=== PATIENT | female | born 1945 | race Caucasian/White ===

== ENCOUNTER 2017-12-13 06:48 | Inpatient (IN) | payer MEDICARE, OTHER ==
[2017-12-01 09:30] LABS: URINE BILIRUBIN NEGATIVE (Negative); URINE BLOOD NEGATIVE (Negative); URINE CLARITY CLEAR; URINE COLOR YELLOW; URINE GLUCOSE-RANDOM NEGATIVE (Negative); URINE KETONES NEGATIVE (Negative); URINE LEUKOCYTES-REFLEX NEGATIVE (Negative); URINE NITRITE-REFLEX NEGATIVE (Negative); URINE PROTEIN NEGATIVE (Negative); URINE SPECIFIC GRAVITY <= 1.005 (1.005-1.030); URINE UROBILINOGEN 0.2 E.U./dl (0.2-1.0)
[2017-12-01 09:39] LABS: HEMATOCRIT 36.9 % (37.0-47.0); HEMOGLOBIN 12.3 gm/dL (12.0-15.0); MCH 32.5 pg (26.0-34.0); MCHC 33.4 g/dL (28.0-37.0); MCV 97.3 fL (80.0-100.0); MPV 8.2 fl. (7.2-11.1); RBC 3.79 mil/uL (4.20-5.00); RDW-CV 13.1 % (10.5-14.5); WBC 3.1 thou/uL (4.0-11.0)
[2017-12-01 09:47] LABS: INR 1.1; PROTIME 10.5 Seconds (9.20-11.50)
[2017-12-01 09:51] LABS: ALBUMIN 3.3 g/dL (3.4-5.0); CALCIUM 8.7 mg/dL (8.5-10.1); CREATININE 0.9 mg/dL (0.6-1.3); POTASSIUM 3.9 mmol/L (3.5-5.1); TOTAL BILIRUBIN 0.4 mg/dL (<0.1-1.0); TOTAL PROTEIN 7.2 g/dL (6.4-8.2)
--- NOTE | 2017-12-01 15:48 | EKG ---
[place] [address] ELECTROCARDIOGRAM REPORT Name: SUBHA RODRIGUEZ Krystle Room: PRE IN [facility]#: [id number] Admission: Attend Phys: Shailesh Mars Discharge: Date of : 47 Report #: [id number] THIS REPORT FOR: //name// [facility] Test Date: 2017-12-01 Test Time: 09:04:56 Pat Name: SUBHA RODRIGUEZ Department: Room: Gender: F Senior Credit Analyst: : 1945 Requested By: Chris Gomez Order Number: [id number] Reading MD: Be Taveras Measurements Intervals [place] Rate: 65 P: 54 MO: 147 QRS: 53 QRSD: 95 T: 61 QT: 387 QTc: 403 Interpretive Statements Sinus rhythm Baseline wander in lead(s) V1,V2 No previous ECG available for comparison Electronically Signed On 12-01-2017 15:48:24 FOREIGN EXCHANGE CLERK by Be Taveras [email or web address] <ELECTRONICALLY SIGNED> By: Be Taveras MD, [facility] 12/01/17 1548 0904 0904 Be Taveras MD, FACC /EPI
[~2017-12-13] VITALS: Ht 157.5 cm; Wt 65.8 kg
[~2017-12-13 06:48] MED LIST: ASPIR 8181 MG PO; CEFUROXIME250 MG PO; PROBIOTIC1 EAC1 PO; PROMETHAZINE/C118 ML PO; SYNTHROID50 MCG PO
[2017-12-13 08:35] VITALS: BP 130/73
[2017-12-13 12:33] VITALS: BP 123/62
[2017-12-13 16:00] VITALS: BP 125/77
[2017-12-13 20:00] VITALS: BP 120/71
[2017-12-14 00:27] VITALS: BP 112/63
[2017-12-14 04:14] VITALS: BP 135/69
[2017-12-14 04:22] LABS: HEMATOCRIT 33.9 % (37.0-47.0); HEMOGLOBIN 11.6 gm/dL (12.0-15.0)
[2017-12-14 05:00] LABS: CALCIUM 7.9 mg/dL (8.5-10.1)
[2017-12-14 08:10] VITALS: BP 127/70
[2017-12-14 10:23] VITALS: BP 127/70
[2017-12-14] MEDS ORDERED: XARELTO10 MG PO (11:02)
[2017-12-14] MEDS ORDERED: PERCOCET PO (11:03)
[2017-12-14 12:15] VITALS: BP 131/80
[2017-12-14 14:21] VITALS: BP 131/80
--- NOTE | 2017-12-15 12:36 | S ---
[place] [address] SURGICAL PATH RPT PROCEDURE Name: SUBHA TALBERT Room: [address] IN M.R.#: [id number] Admission: 12/13/17 Date of : 47 Discharge: 12/14/17 Report #: [id number] Path Case #: [id number] PATHOLOGY REPORT COLLECTION DATE: 12/13/2017 RECEIVED DATE: 12/13/2017 SUBMITTING PHYS: Dr. Chris Gomez II OTHER PHYS: Dr. Zackery Calderon SPECIMEN(S) RECEIVED: A.Right knee degenerative joint disease * * * * * * * * * * * * FINAL DIAGNOSIS: Right knee bone and tissue, total knee replacement: - Benign synovium, dense fibrous connective tissue and meniscus and benign bone and cartilage with degenerative changes. (RANDALL:[facility]; 12/15/2017) PATHOLOGIST: Jose Alejandro Bridges M.D. REPORT ELECTRONICALLY SIGNED BY: Jose Alejandro Bridges M.D. DATE/TIME: 12/15/2017 12:35 * * * * * * * * * * * * GROSS PATHOLOGY: Received in formalin labeled "Subha Talbert right knee bone and tissue," are multiple segments of bone, including tibial plateau, measuring 14.6 x 8.3 x 2.3 cm in aggregate dimensions with scant attached soft tissue; possible meniscus is present. Upon extensive sectioning, eburnation of the articular surfaces is not grossly evident. Data Entry Supervisor sections of bone and soft tissue are submitted in cassette A1, following decalcification. (DAC; 12/14/2017) CLINICAL HISTORY: Right knee degenerative joint disease INITIAL CPT CODE(S): A; 82747, 17881 Professional services performed by [facility] at , [address] [place] [address] [address], [place] [address]. Technical services performed by [facility] at [address] [place] [address], [address] [address]. [place] [address] SURGICAL PATH RPT PROCEDURE Name: SUBHA TALBERT Room: [address] IN M.R.#: [id number] Admission: 12/13/17 Date of : 47 Discharge: 12/14/17 Report #: [id number] Path Case #: [id number] [facility] [address] [place] [id number] PHONE: [phone] DIRECTOR: Diego Mohan M.D. * * * END OF REPORT * * *
--- NOTE | 2017-12-28 16:43 | OP ---
[facility] [place] [facility] [address] [place] [address] OPERATIVE REPORT Name: MITZIHARPERSUBHA Room: [address] IN M.R.#: [id number] Admission: 12/13/17 Attend Phys: Shailesh Mars Discharge: 12/14/17 Date of : 47 Report #: [id number] THIS REPORT FOR: //name// CC: Eagle Diaz DATE OF SERVICE: 12/13/2017 PREOPERATIVE DIAGNOSIS: Right knee osteoarthritis. POSTOPERATIVE DIAGNOSIS: Right knee osteoarthritis. PROCEDURE: Right total knee arthroplasty with Navio. ANESTHESIA: General endotracheal. ESTIMATED BLOOD LOSS: 50 mL. ANTIBIOTICS: Ancef preoperatively. DRAINS: Medium Hemovac. COMPLICATIONS: None. CONDITION: The patient stable to recovery room. IMPLANTS: Listed in the operative record and progress note. BRIEF HISTORY: The patient was seen in the preoperative area. Preoperative H and P was performed. Site was marked. Questions were answered. The risks and benefits were discussed with the patient in detail about surgery. The patient wished to proceed and assumed all risks. OPERATIVE PROCEDURE: The patient was taken to the operative suite, placed supine on the table and given appropriate anesthesia. The patient's right leg was sterilely prepped and draped. A well-padded tourniquet was applied to the upper thigh, which was inflated to 300 mmHg after gravity exsanguination. Surgery began by a midline incision and was carried down to the subcutaneous tissues. A medial parapatellar arthrotomy was performed and carried down to bone. The patella was everted. Excess soft tissues and osteophytes removed from around the femur and tibia. The tibial and femoral cutting guides were then applied with two guide pins one into the tibia and femur each. These were then registered through the CyActive robotic system. After the registration was completed, CyActive robotics was activated and appropriate pin sites were then drilled utilizing robotic assistance. Cutting blocks were then applied, [place] [address] OPERATIVE REPORT Name: MITZIHARPERSUBHA Room: [address]#: [id number] Admission: 12/13/17 Attend Phys: Shailesh Mars Discharge: 12/14/17 Date of : 47 Report #: [id number] for appropriate alignment and rotation, pinned into appropriate position and appropriate cuts were made of the distal femur. The 4-in-1 cutting block was then applied and checked for appropriate position with the robot. Appropriate cuts were made. Excess bone was removed from around the femur. The tibia was then exposed. The previous holes were utilized for the cutting block. This was checked for appropriate alignment and slope and pinned in appropriate position and appropriate cuts were made. Excess tibial bone was removed as was meniscus. Tibial base plate was then applied, checked for rotation and alignment with the drop linda and the robotic assistance and pinned in appropriate position. The femur was then applied and box cut was reamed. This was then trialed with appropriate spacer, which showed excellent fit and fill and excellent stability of the knee throughout range of motion. The CyActive software was utilized to check this. At this time, three peg holes were then drilled in the patella. It was reamed in appropriate fashion and trialed showed excellent flexion and extension and excellent tracking of the patella within the groove. These trials were then removed. The tibia was punched in appropriate fashion. Bone ends were cleaned with Pulsavac irrigation and cement was mixed and applied to the final implants. These were then malletted in position and held with the knee in extension and compressed to allow the cement to cure. After it had cured, excess was removed utilizing [place] and osteotome. The wound was then copiously irrigated and the final spacer was then malleted into position. Tourniquet was deflated. Hemostasis was maintained with electrocautery. The pins were removed for tracking and registration. Pain cocktail was injected and PRP gel was sprayed throughout the internal aspects of the knee. Medium Hemovac drain was then applied. The capsule was then closed with two FiberWire and #1 Vicryl in [id number] fashion. Skin was closed with 2-0 Vicryl and a running 3-0 Monocryl. Dermabond and sterile dressing applied as well as PolarCare and Xander wrap. The patient was transferred to the recovery room in stable condition. Counts were correct throughout the procedure. <ELECTRONICALLY SIGNED> By: Chris Gomez II, DO 12/28/17 1643 0753 [id number] Gomez II, DO /nt
== END 2017-12-14 15:36 | disposition home health service (06) | DRG 470 ==
LOC: M.ORTHSURG 06:48 → M.TBA 06:48 → M.PRE 08:05 → M.ORTHSURG 12:00 → M.PRE 13:35 → M.ORTHSURG 12-14 15:36
PROVIDERS: Internal Medicine; Orthopaedic Surgery; ADMIT Internal Medicine
PROC: 0SRC0JZ Replacement of Right Knee Joint with Synthetic Substitute, Open Approach (ICD-10-PCS; principal; 2017-12-13)
DX: M17.11 Unilateral primary osteoarthritis, right knee (principal); E78.5 Hyperlipidemia, unspecified; Z88.0 Allergy status to penicillin; E03.9 Hypothyroidism, unspecified; Z88.8 Allergy status to other drugs, medicaments and biological substances; Z82.49 Family history of ischemic heart disease and other diseases of the circulatory system; Z98.49 Cataract extraction status, unspecified eye; Z79.82 Long term (current) use of aspirin; Z79.899 Other long term (current) drug therapy

== ENCOUNTER 2018-01-29 03:37 | Emergency (ER) | payer MEDICARE, OTHER ==
[~2018-01-29] VITALS: Ht 157.5 cm; Wt 56.7 kg
[~2018-01-29 03:37] MED LIST changes: +PERCOCET PO; +XARELTO10 MG PO
[2018-01-29 04:29] VITALS: BP 143/77
== END 2018-01-29 04:29 | disposition home or self-care (01) ==
LOC: M.ERS 03:37
DX: J02.9 Acute pharyngitis, unspecified (principal); E78.5 Hyperlipidemia, unspecified; Z88.0 Allergy status to penicillin; Z88.8 Allergy status to other drugs, medicaments and biological substances